=== PATIENT | male | born 1935 | race Asian ===

== ENCOUNTER 2016-12-11 14:31 | Observation (INO) | payer MEDICARE, OTHER ==
[~2016-12-11] VITALS: Ht 157.5 cm; Wt 76.0 kg
[~2016-12-11 14:31] MED LIST: AMIO200T PO; ASPI-535 PO; ATOR80TA18 PO; CARV12.579 PO; CLON-379 PO; COU1 PO; ERGO50007 PO; ESOM40CA PO; FAMO20TA18 PO; FENO134C PO; FERR-55 PO; FOLI-49 PO; LAS20 PO; PARI1CAP7 PO
[2016-12-11] MEDS ORDERED: SOD CHLORIDE 0.9% 1,000 ML IV STA (14:46)
[2016-12-11 15:13] LABS: HEMATOCRIT 35.5 % (42.0-52.0); HEMOGLOBIN 11.9 g/dl (14.0-18.0); MEAN CORPUSCULAR HEMOGLOBIN 23.8 pg (29.0-33.0); MEAN CORPUSCULAR HGB CONC 33.5 g/dl (32.0-37.0); MEAN CORPUSCULAR VOLUME 70.9 fl (82.0-101.0); MEAN PLATELET VOLUME 11.2 fl (7.4-10.4); NEUTROPHILS % 64.6 % (39.0-77.0); PLATELET COUNT 321 10^3/UL (140-415); RED BLOOD COUNT 5.01 10^6/ul (4.70-6.10); RED CELL DISTRIBUTION WIDTH 18.8 % (11.5-14.5); WHITE BLOOD COUNT 7.6 10^3/ul (4.8-10.8)
[2016-12-11 15:14] LABS: ABNORMAL IP MESSAGE 1; BASOPHILS % 0.1 % (0.0-2.0); EOSINOPHILS # 0.1 10^3/ul (0.0-0.5); EOSINOPHILS % 0.8 % (0.0-7.0); LYMPHOCYTES # 1.7 10^3/ul (0.8-2.9); MONOCYTE # 0.8 10^3/ul (0.3-0.9); MONOCYTES % 10.8 % (0.0-11.0); NEUTROPHIL # 4.9 10^3/ul (1.6-7.5); POSITIVE DIFF @See below
[2016-12-11 15:35] LABS: CALCIUM 9.4 mg/dl (8.4-10.2); CREATININE 1.22 mg/dl (0.61-1.24); POTASSIUM 3.6 mmol/L (3.5-5.1)
[2016-12-11 15:47] LABS: TROPONIN-I 0.023 ng/ml (0.00-0.12)
--- NOTE | 2016-12-11 15:53 | RADRPT ---
PROCEDURE: CT Brain without contrast. CLINICAL INDICATION: Patient experiencing Syncope. TECHNIQUE: A multiplanar CT of the brain was performed on a CT scanner utilizing axial imaging fro m the skull base through the vertex without IV contrast. The CTDIvol is 43.38 mGy and the DLP is 72 0.23 mGycm. One or more of the following dose reduction techniques were utilized: Automated exposu re control, adjustment of the mA and/or kV according to patient size, use of iterative reconstructio n technique. COMPARISON: 10/25/2012 FINDINGS: No evidence of intracranial hemorrhage or abnormal extra-axial fluid collection. Extensive patchy an d confluent low attenuation throughout the deep white matter compatible sequelae of chronic microvas cular ischemic injury. Remote lacunar infarct in the left sub insular region. The brain parenchyma is otherwise normal in morphology with preservation of hua white differentiati on. Ventricles and subarachnoid spaces are prominent compatible with mild age related atrophy. The basal cisterns, posterior fossa contents, brainstem, craniocervical junction, orbits, pituitary axis, paranasal sinuses, mastoid air cells, and calvarium are unremarkable. IMPRESSION: 1. No intracranial hemorrhage or acute intracranial abnormality. 2. Moderate chronic microvascular ischemic changes in the deep white matter, remote left sub insula r lacunar infarct and mild age related atrophy. 3. No interval change compared to 10/25/2012 RPTAT:AAJJ Physician Hannah Date Time Electronically viewed and signed by Physician Hannah on 12/11/2016 15:53 KAREN/
[2016-12-11 15:54] LABS: ADD UMIC YES; UR ASCORBIC ACID NEGATIVE (NEGATIVE); UR BILIRUBIN (Dip) NEGATIVE (NEGATIVE); UR BLOOD (Dip) NEGATIVE (NEGATIVE); UR CLARITY CLEAR (CLEAR); UR COLOR YELLOW (YELLOW); UR GLUCOSE (Dip) NEGATIVE (NEGATIVE); UR KETONES (Dip) NEGATIVE (NEGATIVE); UR LEUKOCYTE ESTERASE (Dip) NEGATIVE Leu/ul (NEGATIVE); UR NITRITE (Dip) NEGATIVE (NEGATIVE); UR RBC 0 /HPF (0-5); UR SPECIFIC GRAVITY (Dip) 1.011 (1.003-1.030); UR TOTAL PROTEIN (Dip) 1+ mg/dl (NEGATIVE); UR UROBILINOGEN (Dip) NEGATIVE (NEGATIVE)
[2016-12-11 16:12] LABS: INR 2.2; PROTIME 24.7 Sec (12.2-14.2); PT RATIO 1.9
[2016-12-11 16:13] LABS: PARTIAL THROMBOPLASTIN TIME 33.7 Sec (25.0-35.0)
--- NOTE | 2016-12-11 16:16 | RADRPT ---
PROCEDURE: XR Chest. CLINICAL INDICATION: Chest pain. Syncope TECHNIQUE: Portable AP upright view of the chest was obtained. COMPARISON: 05/10/2013 FINDINGS: The cardiomediastinal silhouette remains mildly enlarged, a left subclavian approach dual chamber ca rdiac pacemaker again demonstrated. The lungs are clear. There is no evidence for pleural effusion , pneumothorax or pulmonary vascular congestion. The osseous structures are intact with no evidence for acute abnormality. Calcification within the aortic arch is again seen RPTAT:HJJR IMPRESSION: 1. Stable cardiac silhouette enlargement and cardiac pacemaker without evidence for acute intrathora cic pathology. 2. Aortic atherosclerosis is present. Physician Citlali Date Time Electronically viewed and signed by Physician Citlali on 12/11/2016 16:16 /
[2016-12-11] MEDS ORDERED: AMLO5TAB4 PO (16:23)
[2016-12-11] MEDS ORDERED: ASPI-664 PO (16:24)
[2016-12-11] MEDS ORDERED: CARV25TA79 PO (16:24)
[2016-12-11] MEDS ORDERED: COLC0.6T6 PO (16:25)
[2016-12-11] MEDS ORDERED: FAMO20TA18 PO (16:25)
[2016-12-11] MEDS ORDERED: FURO40TA4 PO (16:26)
[2016-12-11] MEDS ORDERED: FLUT16SP17 NASAL (16:26)
[2016-12-11] MEDS ORDERED: CHLO118L3 TOP (16:26)
[2016-12-11] MEDS ORDERED: HYDR-3671 PO (16:28)
[2016-12-11] MEDS ORDERED: LOSA50TA6 PO (16:29)
[2016-12-11] MEDS ORDERED: NIT4 SL (16:29)
[2016-12-11] MEDS ORDERED: LEVO25TA50 PO (16:29)
[2016-12-11] MEDS ORDERED: OMEP40CA6 PO (16:30)
[2016-12-11] MEDS ORDERED: PRED20TA PO (16:30)
[2016-12-11] MEDS ORDERED: ERGO500037 PO (16:31)
[2016-12-11] MEDS ORDERED: SOLI5TAB5 PO (16:31)
[2016-12-11] MEDS ORDERED: WARF1TAB47 PO ×2 (16:34)
[2016-12-11] MEDS ORDERED: POLY17PO3 PO (16:35)
[2016-12-11] MEDS ORDERED: CHLO473M4 MM (16:37)
[2016-12-11] MEDS ORDERED: ACETAMINOPHEN 325 MG TAB PO PRN (17:00)
[2016-12-11] MEDS ORDERED: ONDANSETRON 4 MG INJ IV PRN ×2 (17:00→22:00)
[2016-12-11 18:31] VITALS: TEMP 97.7
--- NOTE | 2016-12-11 19:07 | ERA ---
ER Documentation Chief Complaint Date/Time DATE: 12/11/16 TIME: 19:01 Chief Complaint WEAK & FALL ABOUT 1HR, FEELS LIKE WHEN HE HAD A STROKE 3 YRS AGO HPI This 81-year-old male comes emergency room for an episode where he felt very lightheaded had brief episode of chest pain and went down slowly. He is not sure whether he hit his head or not. Initially said that he did. Chest pain is currently resolved. He has no shortness of breath still does feel lightheaded. He is on Coumadin for atrial fibrillation. ROS All systems reviewed and are negative except as per history of present illness. Medications Home Meds Reported Medications Chlorhexidine Gluconate (Peridex) 473 Ml Mouthwash, 473 ML MM PRN, BOTTLE 12/11/16 Polyethylene Glycol* (Polyethylene Glycol*) 17 Gm Powd.pack, 17 GM PO BID, #60 PACKET 12/11/16 Warfarin Sodium* (Coumadin*) 1 Mg Tablet, 1 MG PO DAILY SUN,TU,TH, TAB 12/11/16 Warfarin Sodium* (Coumadin*) 1 Mg Tablet, 1.5 MG PO MON,WED,FRI,SAT, TAB 12/11/16 Ergocalciferol (Vitamin D2) (VITAMIN D2) 50,000 Unit Capsule, 85984 UNIT PO EVERY MONDAY, CAP 12/11/16 Solifenacin* (Vesicare*) 5 Mg Tablet, 5 MG PO DAILY, TAB 12/11/16 Prednisone* (Prednisone*) 20 Mg Tab, 20 MG PO DAILY, TAB 12/11/16 Omeprazole* (Omeprazole*) 40 Mg Capsule.dr, 40 MG PO DAILY, #30 CAP 12/11/16 Nitroglycerin* (Nitrostat*) 0.4 Mg Tab.subl, 0.4 MG SL Q5MIN Y for CHEST PAIN, BOTTLE 12/11/16 Losartan Potassium* (Losartan Potassium*) 50 Mg Tablet, 50 MG PO BID, TAB 12/11/16 Levothyroxine Sodium* (Levoxyl*) 25 Mcg Tablet, 25 MCG PO BEFORE BREAKFAST, #30 TAB 12/11/16 Hydralazine Hcl* (Hydralazine Hcl*) 25 Mg Tab, 25 MG PO TID, #90 TAB 12/11/16 Furosemide* (Furosemide*) 40 Mg Tablet, 40 MG PO BID, TAB 12/11/16 Fluticasone Propionate* (Fluticasone Propionate* Nasal) 50 Mcg/[place] - 16 Gm [place].susp, 1 SPRAY NASAL DAILY, #1 BOTTLE TO EACH NOSTRIL 12/11/16 Chlorhexidine Gluconate* (Chlorhexidine Gluconate*) 118 Ml Liquid, 118 ML TOP, ML 12/11/16 Famotidine* (Famotidine*) 20 Mg Tablet, 20 MG PO BID, #60 TAB 12/11/16 Colchicine* (Colcrys*) 0.6 Mg Tablet, 0.6 MG PO DAILY, TAB 12/11/16 Carvedilol* (Carvedilol*) 25 Mg Tablet, 25 MG PO BID, #60 TAB 12/11/16 Aspirin (Low Dose Aspirin) 81 Mg Tablet.dr, 81 MG PO DAILY, #30 TAB 12/11/16 Amlodipine Besylate* (Norvasc*) 5 Mg Tablet, 5 MG PO DAILY, TAB 12/11/16 Fenofibrate, Micronized (Fenofibrate) 134 Mg Capsule, 134 MG PO DAILY 01/22/12 Atorvastatin (Lipitor) 80 Mg Tablet, 80 MG PO HS 01/22/12 Discontinued Reported Medications Warfarin Sod (Coumadin) 1 Mg Tablet, 0.5 MG PO MON--05/07/13 Paricalcitol* (Zemplar*) 1 Mcg Cap, 1 MCG PO DAILY 05/07/13 Esomeprazole Mag Trihydrate (Nexium) 40 Mg Capsule.dr, 40 MG PO DAILY 01/22/12 Ergocalciferol (Vitamin D) 50,000 Unit Capsule, 74944 UNIT PO 01/22/12 Aspirin Ec (Aspir 81) 81 Mg Tablet.dr, 81 POSYG PO DAILY 01/22/12 Ferrous Sulfate* (Ferrous Sulfate*) 325 Mg Tablet, 325 MG PO BID 01/22/12 Warfarin Sod (Coumadin) 1 Mg Tablet, 1 MG PO DAILY 01/22/12 Amiodarone Hcl* (Amiodarone Hcl*) 200 Mg Tablet, 200 MG PO DAILY 01/22/12 Folic Acid* (Folic Acid*) 1 Mg Tablet, 1 MG PO DAILY 01/22/12 Famotidine* (Famotidine*) 20 Mg Tablet, 20 MG PO DAILY 01/22/12 Carvedilol* (Carvedilol*) 12.5 Mg Tablet, 12.5 MG PO BID 01/22/12 Clonidine Hcl* (Clonidine Hcl*) 0.1 Mg Tab, 0.1 MG PO TID 01/22/12 Furosemide (Lasix) 20 Mg Tab, 20 MG PO BID 01/22/12 Allergies Allergies: Coded Allergies: Penicillins (Verified Allergy, Mild, RASHES, 12/11/16) PMhx/Soc History of Surgery: Yes (pacer 7 yrs ago) Anesthesia Reaction: No Hx Neurological Disorder: No Hx Respiratory Disorders: No Hx Cardiac Disorders: Yes Hx Psychiatric Problems: No Hx Miscellaneous Medical Probl: No Hx Alcohol Use: Yes (drink wine and beer once a week) Hx Substance Use: No Hx Tobacco Use: No Smoking Status: Never smoker Physical Exam Vitals Vital Signs Date Time Temp Pulse Resp B/P Pulse Ox O2 Delivery O2 Flow Rate FiO2 12/11/16 18:31 97.7 72 20 186/88 100 Room Air 12/11/16 16:47 97.7 60 18 182/99 96 Room Air 12/11/16 14:40 97.7 61 20 193/91 96 Physical Exam Const: [] Mild distress Head: Atraumatic Eyes: Normal Conjunctiva ENT: Normal External Ears, Nose and Mouth. Neck: Full range of motion..~ No meningismus. Resp: Clear to auscultation bilaterally Cardio: Regular rate and rhythm, no murmurs Abd: Soft, non tender, non distended. Normal bowel sounds Skin: No petechiae or rashes Back: No midline or flank tenderness Ext: No cyanosis, or edema Neur: Awake and alert and oriented 3, cranial nerves II through XII intact, no focal deficits Psych: Normal Mood and Affect Result Diagram: 12/11/16 1453 12/11/16 1453 Results 24 hrs Laboratory Tests Test 12/11/16 14:53 12/11/16 15:30 12/11/16 15:45 White Blood Count 7.610^3/ul Red Blood Count 5.0110^6/ul Hemoglobin 11.9g/dl Hematocrit 35.5% Mean Corpuscular Volume 70.9fl Mean Corpuscular Hemoglobin 23.8pg Mean Corpuscular Hemoglobin Concent 33.5g/dl Red Cell Distribution Width 18.8% Platelet Count 63152^3/UL Mean Platelet Volume 11.2fl Neutrophils % 64.6% Lymphocytes % 23.0% Monocytes % 10.8% Eosinophils % 0.8% Basophils % 0.1% Nucleated Red Blood Cells % 0.0/100WBC Neutrophils # 4.910^3/ul Lymphocytes # 1.710^3/ul Monocytes # 0.810^3/ul Eosinophils # 0.110^3/ul Basophils # 0.010^3/ul Nucleated Red Blood Cells # 0.010^3/ul Sodium Level 138mmol/L Potassium Level 3.6mmol/L Chloride Level 96mmol/L Carbon Dioxide Level 27mmol/L Anion Gap 19 Blood Urea Nitrogen 28mg/dl Creatinine 1.22mg/dl Glucose Level 122mg/dl Calcium Level 9.4mg/dl Troponin I 0.023ng/ml Urine Color YELLOW Urine Clarity CLEAR Urine pH 6.0 Urine Specific [place] 1.011 Urine Ketones NEGATIVEmg/dL Urine Nitrite NEGATIVEmg/dL Urine Bilirubin NEGATIVEmg/dL Urine Urobilinogen NEGATIVEmg/dL Urine Leukocyte Esterase NEGATIVELeu/ul Urine Microscopic RBC 0/HPF Urine Microscopic WBC 1/HPF Urine Hemoglobin NEGATIVEmg/dL Urine Glucose NEGATIVEmg/dL Urine Total Protein 1+mg/dl Prothrombin Time 24.7Sec Prothrombin Time Ratio 1.9 INR International Normalized Ratio 2.20 Activated Partial Thromboplast Time 33.7Sec Current Medications Medications (Trade) Dose Ordered Sig/[place] Route PRN Reason Start Time Stop Time Status Last Admin Dose Admin Sodium Chloride (NS) 1,000 ml @ 1,000 mls/hr Q1H STAT IV 12/11/16 14:46 12/11/16 15:45 DC 12/11/16 15:04 Ondansetron HCl (Zofran Inj) 4 mg ER BRIDGE PRN IV NAUSEA AND/OR VOMITING 12/11/16 17:00 12/12/16 16:59 Acetaminophen (Tylenol Tab) 650 mg ER BRIDGE PRN PO MILD PAIN/FEVER 12/11/16 17:00 12/12/16 16:59 Procedures/MDM Syncopal episode with possible head injury on Coumadin with a therapeutic INR. Patient also had brief chest pain as extensive risk factors for coronary artery disease and for possible arrhythmia causing syncope. No signs of infection. I am going to admit him to telemetry for further workup. He was given normal saline in the emergency room as well as aspirin. He did start to feel light less lightheaded. When he needs to be monitored with cardiac arrhythmia and the risk of delayed head bleed. EKG interpretation: Normal sinus rhythm rate of 68, wide QRS, prolonged QTC of 516, left axis deviation, no ST or T-wave changes concerning for acute ischemia. quality assurance monitor final interpretation: Alternating sinus rhythm and paced rhythm of 60. No other arrhythmias Head CT interpretation: I see no acute process, I see no hemorrhage, no mass- effect no midline shift no skull fracture Chest x-ray interpretation: Pacemaker in place. I see no other acute process. I see no infiltrates, no foreign edema, and with her eyes, no fractures Departure Diagnosis: Primary Impression: Syncope Additional Impressions: Head injury Coagulopathy Chest pain Generalized weakness Condition: Stable PARISH ROBERTO DO Dec 11, 2016 19:07
[2016-12-11] MEDS ORDERED: ASPIRIN 81 MG TAB PO ONE (19:30)
[2016-12-11] MEDS ORDERED: hydrALAzine 20 MG INJ IV ONE (20:30)
[2016-12-11 21:07] VITALS: PULSE 60
[2016-12-11 22:00] VITALS: Ht 157.5 cm; Wt 76.0 kg
[2016-12-11] MEDS ORDERED: morphine 2 MG INJ IV PRN (22:00)
[2016-12-11] MEDS ORDERED: NITROGLYCERIN (SL) 0.4 MG TAB SL PRN (22:00)
[2016-12-11 22:19] VITALS: BP 180/87; RESP 16
[2016-12-11] MEDS: LOSARTAN 50 MG TAB PO SCH (22:38)
[2016-12-11] MEDS: FUROSEMIDE 40 MG TAB PO SCH (22:39)
[2016-12-11] MEDS: ATORVASTATIN 80 MG TAB PO SCH (22:39)
[2016-12-12] VITALS (13 sets, daily range): BP systolic 103–184; BP diastolic 57–99; PULSE 60–104; RESP 16–18
[2016-12-12] MEDS: PANTOPRAZOLE (EC) 40 MG TAB PO SCH (05:35)
[2016-12-12] MEDS: FUROSEMIDE 40 MG TAB PO SCH ×2 (05:35→17:08)
--- NOTE | 2016-12-12 05:46 | HP ---
Date/Time of Note Date/Time of Note DATE: 12/12/16 TIME: 05:30 Assessment/Plan VTE Prophylaxis VTE Prophylaxis Intervention: other (coumadin) Lines/Catheters [facility] Saline Lock Urinary Cath still in place: No Assessment/Plan Assessment/Plan 1. Lightheadedness/near syncope -Continue to monitor on the telemetry unit -Patient without any neurological deficits suggestive of stroke. Head CT was also negative for acute findings. Plan is to obtain a 2D echo, trend his troponin, and it will order CT angiogram of the head and neck. Note that patient has a pacemaker and as such MRI cannot be done. -Will continue his home medication including his antihypertensives for better blood pressure control. -We will consider a cardiology consult 2. History of CVA -Continue aspirin and statin 3. History of SD -Continue aspirin, statin, ARB and beta-jj -Follow up on the 2D echo results as well as troponins 4. Sick sinus, status-post pacemaker -Continue cardiac meds 5. History of A. fib -He is in sinus rhythm. Also has a pacemaker for sick sinus -Continue Coumadin as well as his cardiac medications. INR is therapeutic at 2.2 6. Microcytic anemia -We will evaluate for GI bleed by sending FOBT. We will also check iron profile and ferritin HPI/ROS Admit Date/Time Admit Date/Time Dec 11, 2016 at 16:40 Hx of Present Illness This is an 81-year-old male with a history of chronic A. fib, SD in 2005, CVA in 2005, sick sinus status post pacemaker placement in 2005 who presented to the emergency department with a chief complaint of lightheadedness. He said earlier today while he was in a standing position he felt lightheaded and and was about to fall down but he is somewhat caught himself and had to sit on the floor. He denied any palpitations, chest pain, focal weakness, headache, blurry vision, shortness of breath or stroke like symptom even though he said he was also similarly lightheaded when he had stroke about 10 years ago. He denied hematemesis, bright red blood per rectum or dark stool. When he presented to the ER, his initial blood pressure was 193/91with of heart rate 61. Laboratory values shows a hemoglobin of 11.9 with MCV of 71, BUN 28 with a creatinine of 1.22. CT of the head shows a chronic mitral vascular ischemic change and remote lacunar infarct otherwise no acute findings. Chest x -ray shows stable enlarged cardiac silhouette otherwise no acute cardiopulmonary findings. . PMH/Family/Social Social History Smoking Status: Never smoker Exam/Review of Systems Vital Signs Vitals Vital Signs Date Time Temp Pulse Resp B/P Pulse Ox O2 Delivery O2 Flow Rate FiO2 12/12/16 04:45 97.9 61 16 160/80 96 12/11/16 20:23 Room Air Intake and Output 12/11/16 12/11/16 12/12/16 15:00 23:00 07:00 Intake Total 1000 ml Output Total 1430 ml Balance -430 ml Exam Exam Sick sinus status post pacemaker, SD, CVA both in 2006 and chronic A. fib Constitutional: alert, oriented, well developed Head: atraumatic, normocephalic Eyes: EOMI, PERRL Neck: non-tender, supple Respiratory: clear to auscultation, normal air movement Cardiovascular: nl pulses, other (Pacemaker in place in the left upper chest), regular rate and rhythm Gastrointestinal: non-tender, soft Extremities: normal pulses Neurological: nl mental status, nl speech, nl strength Labs Result Diagram: 12/11/16 1453 12/11/16 1453 Medications Medications Current Medications Amlodipine Besylate (Norvasc) 5 mg DAILY PO ; Start 12/12/16 at 09:00 Atorvastatin Calcium (Lipitor) 80 mg HS PO Last administered on 12/11/16 22:39 ; Admin Dose 80 MG; Start 12/11/16 at 22:00 Carvedilol (Coreg) 25 mg BID PO ; Start 12/11/16 at 22:00 Chlorhexidine Gluconate (Peridex) 473 ml PRN MM ; Start 12/12/16 at 09:00; Status UNV Famotidine (Pepcid) 20 mg DAILY PO ; Start 12/12/16 at 09:00 Fluticasone Propionate (Flonase 0.05% Nasal) 1 spray DAILY NASAL ; Start at 09:00 Furosemide (Lasix) 40 mg BID@06,18 PO Last administered on 12/11/16 22:39; Admin Dose 40 MG; Start 12/11/16 at 22:00 Hydralazine HCl (Apresoline) 25 mg TID PO Last administered on 12/11/16 22:38 ; Admin Dose 25 MG; Start 12/11/16 at 22:00 Losartan Potassium (Cozaar) 50 mg BID PO Last administered on 12/11/16 22:38; Admin Dose 50 MG; Start 12/11/16 at 22:00 Nitroglycerin (Nitroglycerin (Sl Tab) 0.4 Mg) 0.4 tab [id number] PRN SL CHEST PAIN; Start 12/11/16 at 22:00 Polyethylene Glycol (Miralax) 17 gm BID PO ; Start 12/12/16 at 09:00 Prednisone (Prednisone) 20 mg DAILY PO ; Start 12/12/16 at 09:00 Solifenacin (Vesicare) 5 mg DAILY PO ; Start 12/12/16 at 09:00 Morphine Sulfate (morphine) 2 mg Q4H PRN IV pain; Start 12/11/16 at 22:00 Ondansetron HCl (Zofran Inj) 4 mg Q6H PRN IV NAUSEA AND/OR VOMITING; Start at 22:00 Colchicine (Colchicine) 0.6 mg DAILY PO ; Start 12/12/16 at 09:00 Fenofibrate (Tricor) 145 mg DAILY PO ; Start 12/12/16 at 09:00 Pantoprazole (Protonix Tab) 40 mg DAILY@06 PO ; Start 12/12/16 at 06:00 CORINA WATSON MD Dec 12, 2016 05:42
[2016-12-12] MEDS: LEVOTHYROXINE 25 MCG TAB PO SCH (07:47)
[2016-12-12] MEDS ORDERED: [UNRECOGNIZED DRUG - REMARK] XX SCH (08:00)
[2016-12-12 08:24] LABS: ABNORMAL IP MESSAGE 1; BASOPHILS % 0.3 % (0.0-2.0); EOSINOPHILS # 0.2 10^3/ul (0.0-0.5); EOSINOPHILS % 2.7 % (0.0-7.0); HEMATOCRIT 41.9 % (42.0-52.0); HEMOGLOBIN 14.1 g/dl (14.0-18.0); LYMPHOCYTES # 1.6 10^3/ul (0.8-2.9); LYMPHOCYTES % 27.2 % (15.0-51.0); MEAN CORPUSCULAR HEMOGLOBIN 23.5 pg (29.0-33.0); MEAN CORPUSCULAR HGB CONC 33.7 g/dl (32.0-37.0); MEAN CORPUSCULAR VOLUME 69.8 fl (82.0-101.0); MEAN PLATELET VOLUME 10.5 fl (7.4-10.4); MONOCYTE # 0.8 10^3/ul (0.3-0.9); MONOCYTES % 13.7 % (0.0-11.0); NEUTROPHIL # 3.3 10^3/ul (1.6-7.5); NEUTROPHILS % 55.3 % (39.0-77.0); PLATELET COUNT 418 10^3/UL (140-415); POSITIVE DIFF @See below; RED CELL DISTRIBUTION WIDTH 19.2 % (11.5-14.5); WHITE BLOOD COUNT 5.9 10^3/ul (4.8-10.8)
[2016-12-12] MEDS: FLUTICASONE 0.05% 16 GM NAS SPRAY NASAL SCH (08:42)
[2016-12-12] MEDS: POLYETHYLENE GLYCOL 17 GM PACKET PO SCH (08:42)
[2016-12-12] MEDS: FAMOTIDINE 20 MG TAB PO SCH (08:43)
[2016-12-12] MEDS: FENOFIBRATE 145 MG TAB PO SCH (08:43)
[2016-12-12] MEDS: predniSONE 20 MG TAB PO SCH (08:43)
[2016-12-12] MEDS: AMLODIPINE 5 MG TAB PO SCH (08:43)
[2016-12-12] MEDS: SOLIFENACIN 5 MG TAB PO SCH (08:43)
[2016-12-12] MEDS: LOSARTAN 50 MG TAB PO SCH (08:44)
[2016-12-12] MEDS: COLCHICINE 0.6 MG TAB PO SCH (08:46)
[2016-12-12 08:55] LABS: ALBUMIN 4.1 g/dl (3.3-4.9); ALBUMIN/GLOBULIN RATIO 1.1; BILIRUBIN,INDIRECT 0.5 mg/dl (0-1.1); BILIRUBIN,TOTAL 0.5 mg/dl (0.2-1.3); CALCIUM 10.2 mg/dl (8.4-10.2); CHOL/HDL RATIO 3.6 RATIO; CREATININE 1.28 mg/dl (0.61-1.24); POTASSIUM 4.2 mmol/L (3.5-5.1); TOTAL PROTEIN 7.8 g/dl (6.1-8.1)
[2016-12-12] MEDS ORDERED: CHLORHEXIDINE GLUCONATE 15 ML UD CUP MM SCH (09:00)
[2016-12-12] MEDS ORDERED: NON-FORMULARY/PATIENT OWN MED (Omeprazole* 40 MG) PO SCH (09:00)
[2016-12-12] MEDS ORDERED: COLCHICINE 0.6 MG TAB PO SCH (09:00)
[2016-12-12] MEDS ORDERED: NON-FORMULARY/PATIENT OWN MED (Fenofibrate, Micronized (Fenofibrate) 134 MG) PO SCH (09:00)
[2016-12-12 09:21] LABS: THYROID STIMULATING HORMONE 4.24 MIU/L (0.465-4.680)
[2016-12-12 09:37] LABS: IRON 90 ug/dl (35-150)
[2016-12-12 09:47] LABS: TOTAL IRON BINDING CAPACITY 320 ug/dl (241-421)
--- NOTE | 2016-12-12 14:56 | PN ---
Date/Time of Note Date/Time of Note DATE: 12/12/16 TIME: 14:52 Assessment/Plan VTE Prophylaxis VTE Prophylaxis Intervention: other Lines/Catheters IV [facility] Saline Lock Urinary Cath still in place: No Assessment/Plan Chief Complaint/Hosp Course Presyncope: - Clearly orthostatic by history in patient with numerous antihypertensives causing orthostasis as side effect. Seems to have been caused by recent addition of amlodipine. I discussed w the patient that he can discontinue amlodipnien if he feels dizziness is not tolerable. 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 States he has had orthostatic symtpoms since starting this medication. Has repeat appointment Monday Reports hypertension uncontrolled on home monitor over past two weeks Feels well otherwise, no chest symptioms Exam/Review of Systems Vital Signs Vitals Vital Signs Date Time Temp Pulse Resp B/P Pulse Ox O2 Delivery O2 Flow Rate FiO2 12/12/16 12:25 104 12/12/16 11:40 98.0 17 135/73 94 12/11/16 20:23 Room Air Intake and Output 12/11/16 12/11/16 12/12/16 15:00 23:00 07:00 Intake Total 1000 ml 400 ml Output Total 1430 ml Balance -430 ml 400 ml Exam Well appeairng, Aox3 Flat neck veins Regular RR Clear lungs No edema Results Result Diagram: 12/12/16 0718 12/12/16 0721 Results 24 hrs Laboratory Tests Test 12/11/16 14:53 12/11/16 15:30 12/11/16 15:45 12/12/16 00:39 White Blood Count 7.6 Red Blood Count 5.01 Hemoglobin 11.9 L Hematocrit 35.5 L Mean Corpuscular Volume 70.9 L Mean Corpuscular Hemoglobin 23.8 L Mean Corpuscular Hemoglobin Concent 33.5 Red Cell Distribution Width 18.8 H Platelet Count 321 Mean Platelet Volume 11.2 H Neutrophils % 64.6 Lymphocytes % 23.0 Monocytes % 10.8 Eosinophils % 0.8 Basophils % 0.1 Nucleated Red Blood Cells % 0.0 Neutrophils # 4.9 Lymphocytes # 1.7 Monocytes # 0.8 Eosinophils # 0.1 Basophils # 0.0 Nucleated Red Blood Cells # 0.0 Sodium Level 138 Potassium Level 3.6 Chloride Level 96 L Carbon Dioxide Level 27 Anion Gap 19 H Blood Urea Nitrogen 28 H Creatinine 1.22 Glucose Level 122 Calcium Level 9.4 Troponin I 0.023 0.042 Urine Color YELLOW Urine Clarity CLEAR Urine pH 6.0 Urine Specific [place] 1.011 Urine Ketones NEGATIVE Urine Nitrite NEGATIVE Urine Bilirubin NEGATIVE Urine Urobilinogen NEGATIVE Urine Leukocyte Esterase NEGATIVE Urine Microscopic RBC 0 Urine Microscopic WBC 1 Urine Hemoglobin NEGATIVE Urine Glucose NEGATIVE Urine Total Protein 1+ H Prothrombin Time 24.7 H Prothrombin Time Ratio 1.9 INR International Normalized Ratio 2.20 Activated Partial Thromboplast Time 33.7 Test 12/12/16 07:18 12/12/16 07:21 White Blood Count 5.9 # Red Blood Count 6.00 Hemoglobin 14.1 Hematocrit 41.9 L Mean Corpuscular Volume 69.8 L Mean Corpuscular Hemoglobin 23.5 L Mean Corpuscular Hemoglobin Concent 33.7 Red Cell Distribution Width 19.2 H Platelet Count 418 #H Mean Platelet Volume 10.5 H Neutrophils % 55.3 Lymphocytes % 27.2 Monocytes % 13.7 H Eosinophils % 2.7 Basophils % 0.3 Nucleated Red Blood Cells % 0.0 Neutrophils # 3.3 Lymphocytes # 1.6 Monocytes # 0.8 Eosinophils # 0.2 Basophils # 0.0 Nucleated Red Blood Cells # 0.0 Sodium Level 138 Potassium Level 4.2 Chloride Level 93 L Carbon Dioxide Level 32 H Anion Gap 17 H Blood Urea Nitrogen 25 H Creatinine 1.28 H Glucose Level 93 Hemoglobin A1c 6.1 H Calcium Level 10.2 Iron Level 90 Total Iron Binding Capacity 320 Percent Iron Saturation 28 Ferritin 486.0 H Total Bilirubin 0.5 Direct Bilirubin 0.00 Indirect Bilirubin 0.5 Aspartate Amino Transf (AST/SGOT) 71 H Alanine Aminotransferase (ALT/SGPT) 100 H Alkaline Phosphatase 67 Troponin I 0.047 Total Protein 7.8 Albumin 4.1 Globulin 3.70 H Albumin/Globulin Ratio 1.10 Triglycerides Level 111 Cholesterol Level 140 LDL Cholesterol, Calculated 80 HDL Cholesterol 38 Cholesterol/HDL Ratio 3.6 Thyroid Stimulating Hormone (TSH) 4.240 Medications Medications Current Medications Amlodipine Besylate (Norvasc) 5 mg DAILY PO Last administered on 12/12/16 08: 43; Admin Dose 5 MG; Start 12/12/16 at 09:00 Atorvastatin Calcium (Lipitor) 80 mg HS PO Last administered on 12/11/16 22:39 ; Admin Dose 80 MG; Start 12/11/16 at 22:00 Carvedilol (Coreg) 25 mg BID PO Last administered on 12/12/16 08:43; Admin Dose 25 MG; Start 12/11/16 at 22:00 Famotidine (Pepcid) 20 mg DAILY PO Last administered on 12/12/16 08:43; Admin Dose 20 MG; Start 12/12/16 at 09:00 Fluticasone Propionate (Flonase 0.05% Nasal) 1 spray DAILY NASAL Last administered on 12/12/16 08:42; Admin Dose 1 SPRAY; Start 12/12/16 at 09:00 Furosemide (Lasix) 40 mg BID@,18 PO Last administered on 12/12/16 05:35; Admin Dose 40 MG; Start 12/11/16 at 22:00 Hydralazine HCl (Apresoline) 25 mg TID PO Last administered on 12/12/16 12:24 ; Admin Dose 25 MG; Start 12/11/16 at 22:00 Losartan Potassium (Cozaar) 50 mg BID PO Last administered on 12/12/16 08:44; Admin Dose 50 MG; Start 12/11/16 at 22:00 Nitroglycerin (Nitroglycerin (Sl Tab) 0.4 Mg) 0.4 tab [id number] PRN SL CHEST PAIN; Start 12/11/16 at 22:00 Polyethylene Glycol (Miralax) 17 gm BID PO Last administered on 12/12/16 08:42 ; Admin Dose 17 GM; Start 12/12/16 at 09:00 Prednisone (Prednisone) 20 mg DAILY PO Last administered on 12/12/16 08:43; Admin Dose 20 MG; Start 12/12/16 at 09:00 Solifenacin (Vesicare) 5 mg DAILY PO Last administered on 12/12/16 08:43; Admin Dose 5 MG; Start 12/12/16 at 09:00 Morphine Sulfate (morphine) 2 mg Q4H PRN IV pain; Start 12/11/16 at 22:00 Ondansetron HCl (Zofran Inj) 4 mg Q6H PRN IV NAUSEA AND/OR VOMITING; Start at 22:00 Colchicine (Colchicine) 0.6 mg DAILY PO Last administered on 12/12/16 08:46; Admin Dose 0.6 MG; Start 12/12/16 at 09:00 Fenofibrate (Tricor) 145 mg DAILY PO Last administered on 12/12/16 08:43; Admin Dose 145 MG; Start 12/12/16 at 09:00 Pantoprazole (Protonix Tab) 40 mg DAILY@06 PO Last administered on 12/12/16 05 :35; Admin Dose 40 MG; Start 12/12/16 at 06:00 CHUY CLEMENTE MD Dec 12, 2016 14:56
--- NOTE | 2016-12-12 15:18 | RADRPT ---
Echocardiogram Report Patient Name: OMAR BAUTISTA Gender: Male Date: 1935 Study Date: 12-Dec-2016 Carpet Winder: Dariusz Feliciano [facility] Location: 5556 Ref. Physician: CORINA WATSON Quality: Good Procedures: Transthoracic echocardiogram with complete 2D, M-Mode, and doppler examination. Indications: Near Syncope. 2D/M Mode Doppler Measurement Value Normal Ranges Measurement Value Normal Ranges LVIDd 2D 4.0 3.5 - 5.6 cm AV Peak Matthew 1.0 m/sec LVIDs 2D 2.2 2.1 - 4.1 cm AV Peak PG 3.7 mmHg LVPWd 2D 1.6 0.6 - 1.1 cm AI Peak PG 123.5 mmHg IVSd 2D 1.8 0.6 - 1.1 cm AI Peak Matthew 5.6 m/sec AoR Diam 2D 3.1 2.0 - 3.7 cm AI PHT 1045.7 msec EDV 2D 70.1 cm3 LVOT Peak Matthew 0.8 m/sec ESV 2D 10.8 cm3 LVOT Peak PG 2.7 mmHg LA Dimen 2D 4.2 2.3 - 4.0 cm TR Peak Matthew 2.6 m/sec TR Peak PG 26.4 mmHg RVSP 36.0 mmHg Findings Left Ventricle: Normal left ventricular cavity size. Severe concentric left ventricular hypertrophy. Mild left ventricular systolic dysfunction. Ejection fraction is visually estimated at 45 %. Tissue Doppler/Mitral Doppler indices are consistent with restrictive physiology with markedly elevated left atrial pressure (Stage IIIIV diastolic dysfunction). Multiple segmental wall motion abnormalities. Right Ventricle: Normal right ventricular size. Normal right ventricular systolic function. Pacemaker right heart. Left Atrium: There is mild enlargement of left atrium. Right Atrium: The right atrium is normal in size. Mitral Valve: Normal appearance and function of the mitral valve with trace physiologic regurgitation. Aortic Valve: No hemodynamically significant aortic stenosis by doppler. Aortic cusps appear mildly calcified. Mild aortic valve regurgitation. Tricuspid Valve: Normal appearance of the tricuspid valve. Estimated peak PA systolic pressure 36 mmHg. There is mild tricuspid regurgitation. Pulmonic Valve: Pulmonic valve not well visualized. There is trace pulmonic regurgitation. Pericardium: Normal pericardium with no significant pericardial effusion. Aorta: Normal aortic root. IVC: Normal size and normal respiratory collapse consistent with normal right atrial pressure. Conclusions 1.Normal left ventricular cavity size. Severe concentric left ventricular hypertrophy. Mild left ventricular systolic dysfunction. Ejection fraction is visually estimated at 45 %. Tissue Doppler/Mitral Doppler indices are consistent with restrictive physiology with markedly elevated left atrial pressure (Stage III-IV diastolic dysfunction). Multiple segmental wall motion abnormalities. 2.There is mild enlargement of left atrium. 3.Normal appearance and function of the mitral valve with trace physiologic regurgitation. 4.No hemodynamically significant aortic stenosis by doppler. Aortic cusps appear mildly calcified. Mild aortic valve regurgitation. 5.Normal appearance of the tricuspid valve. Estimated peak PA systolic pressure 36 mmHg. There is mild tricuspid regurgitation. 6.Normal size and normal respiratory collapse consistent with normal right atrial pressure. Electronically Signed By: Ayo Sanchez 12-Dec-2016 15:17:06 -0700 Patient Name: OMAR BAUTISTA Study Date: 12-Dec-2016 [id number]
[2016-12-13] VITALS (7 sets, daily range): BP systolic 104–141; BP diastolic 54–82; PULSE 60–62; RESP 16–18
[2016-12-13] MEDS: ATORVASTATIN 80 MG TAB PO SCH (01:49)
[2016-12-13] MEDS: LOSARTAN 50 MG TAB PO SCH ×2 (01:51→09:44)
[2016-12-13] MEDS: POLYETHYLENE GLYCOL 17 GM PACKET PO SCH ×2 (01:51→09:46)
[2016-12-13] MEDS: PANTOPRAZOLE (EC) 40 MG TAB PO SCH (05:32)
[2016-12-13] MEDS: FUROSEMIDE 40 MG TAB PO SCH (05:32)
[2016-12-13] MEDS: LEVOTHYROXINE 25 MCG TAB PO SCH (05:34)
[2016-12-13] MEDS: FLUTICASONE 0.05% 16 GM NAS SPRAY NASAL SCH (09:42)
[2016-12-13] MEDS: COLCHICINE 0.6 MG TAB PO SCH (09:43)
[2016-12-13] MEDS: FENOFIBRATE 145 MG TAB PO SCH (09:45)
[2016-12-13] MEDS: SOLIFENACIN 5 MG TAB PO SCH (09:45)
[2016-12-13] MEDS: FAMOTIDINE 20 MG TAB PO SCH (09:45)
[2016-12-13] MEDS: predniSONE 20 MG TAB PO SCH (09:45)
[2016-12-13] MEDS: AMLODIPINE 5 MG TAB PO SCH (09:46)
--- NOTE | 2016-12-13 13:33 | PDOCDIS ---
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 Make them aware of your problem with dizziness with standing and see if you should change your blood pressure regimen CHUY CLEMENTE MD Dec 13, 2016 13:33
--- NOTE | 2016-12-13 13:35 | DS ---
Date/Time of Note Date/Time of Note DATE: 12/13/16 TIME: 13:34 Discharge Summary Admission/Discharge Info Admit Date/Time Dec 11, 2016 at 16:40 Discharge Date/Time Patient Condition: Good Consults None Procedures None Hx of Present Illness This is an 81-year-old male with a history of chronic A. fib, DE in 2005, CVA in 2005, sick sinus status post pacemaker placement in 2005 who presented to the emergency department with a chief complaint of lightheadedness. He said earlier today while he was in a standing position he felt lightheaded and and was about to fall down but he is somewhat caught himself and had to sit on the floor. He denied any palpitations, chest pain, focal weakness, headache, blurry vision, shortness of breath or stroke like symptom even though he said he was also similarly lightheaded when he had stroke about 10 years ago. He denied hematemesis, bright red blood per rectum or dark stool. When he presented to the ER, his initial blood pressure was 193/91with of heart rate 61. Laboratory values shows a hemoglobin of 11.9 with MCV of 71, BUN 28 with a creatinine of 1.22. CT of the head shows a chronic mitral vascular ischemic change and remote lacunar infarct otherwise no acute findings. Chest x -ray shows stable enlarged cardiac silhouette otherwise no acute cardiopulmonary findings. . Hospital Course Presyncope: - Clearly orthostatic by history in patient with numerous antihypertensives causing orthostasis as side effect. Seems to have been caused by recent addition of amlodipine. I discussed w the patient that he can discontinue amlodipnien if he feels dizziness is not tolerable. Otherwise I educated him on behavioral techniques to avoid syncope (stand slowly, cross legs, etc) - Patient had no evidence of arrythmia - Instructed of follow up with front elevator operator and PCP regarding his orthostatic symptoms Home Meds Reported Medications Chlorhexidine Gluconate (Peridex) 473 Ml Mouthwash, 473 ML MM PRN, BOTTLE 12/11/16 Polyethylene Glycol* (Polyethylene Glycol*) 17 Gm Powd.pack, 17 GM PO BID, #60 PACKET 12/11/16 Warfarin Sodium* (Coumadin*) 1 Mg Tablet, 1 MG PO DAILY SUN,TU,TH, TAB 12/11/16 Warfarin Sodium* (Coumadin*) 1 Mg Tablet, 1.5 MG PO MON,WED,FRI,SAT, TAB 12/11/16 Ergocalciferol (Vitamin D2) (VITAMIN D2) 50,000 Unit Capsule, 85542 UNIT PO EVERY MONDAY, CAP 12/11/16 Solifenacin* (Vesicare*) 5 Mg Tablet, 5 MG PO DAILY, TAB 12/11/16 Prednisone* (Prednisone*) 20 Mg Tab, 20 MG PO DAILY, TAB 12/11/16 Omeprazole* (Omeprazole*) 40 Mg Capsule.dr, 40 MG PO DAILY, #30 CAP 12/11/16 Nitroglycerin* (Nitrostat*) 0.4 Mg Tab.subl, 0.4 MG SL Q5MIN Y for CHEST PAIN, BOTTLE 12/11/16 Losartan Potassium* (Losartan Potassium*) 50 Mg Tablet, 50 MG PO BID, TAB 12/11/16 Levothyroxine Sodium* (Levoxyl*) 25 Mcg Tablet, 25 MCG PO BEFORE BREAKFAST, #30 TAB 12/11/16 Hydralazine Hcl* (Hydralazine Hcl*) 25 Mg Tab, 25 MG PO TID, #90 TAB 12/11/16 Furosemide* (Furosemide*) 40 Mg Tablet, 40 MG PO BID, TAB 12/11/16 Fluticasone Propionate* (Fluticasone Propionate* Nasal) 50 Mcg/[place] - 16 Gm [place].susp, 1 SPRAY NASAL DAILY, #1 BOTTLE TO EACH NOSTRIL 12/11/16 Chlorhexidine Gluconate* (Chlorhexidine Gluconate*) 118 Ml Liquid, 118 ML TOP, ML 12/11/16 Famotidine* (Famotidine*) 20 Mg Tablet, 20 MG PO BID, #60 TAB 12/11/16 Colchicine* (Colcrys*) 0.6 Mg Tablet, 0.6 MG PO DAILY, TAB 12/11/16 Carvedilol* (Carvedilol*) 25 Mg Tablet, 25 MG PO BID, #60 TAB 12/11/16 Aspirin (Low Dose Aspirin) 81 Mg Tablet.dr, 81 MG PO DAILY, #30 TAB 12/11/16 Amlodipine Besylate* (Norvasc*) 5 Mg Tablet, 5 MG PO DAILY, TAB 12/11/16 Fenofibrate, Micronized (Fenofibrate) 134 Mg Capsule, 134 MG PO DAILY 01/22/12 Atorvastatin (Lipitor) 80 Mg Tablet, 80 MG PO HS 01/22/12 Discontinued Reported Medications Warfarin Sod (Coumadin) 1 Mg Tablet, 0.5 MG PO MON-05/07/13 Paricalcitol* (Zemplar*) 1 Mcg Cap, 1 MCG PO DAILY 05/07/13 Esomeprazole Mag Trihydrate (Nexium) 40 Mg Capsule.dr, 40 MG PO DAILY 01/22/12 Ergocalciferol (Vitamin D) 50,000 Unit Capsule, 53067 UNIT PO 01/22/12 Aspirin Ec (Aspir 81) 81 Mg Tablet.dr, 81 POSYG PO DAILY 01/22/12 Ferrous Sulfate* (Ferrous Sulfate*) 325 Mg Tablet, 325 MG PO BID 01/22/12 Warfarin Sod (Coumadin) 1 Mg Tablet, 1 MG PO DAILY 01/22/12 Amiodarone Hcl* (Amiodarone Hcl*) 200 Mg Tablet, 200 MG PO DAILY 01/22/12 Folic Acid* (Folic Acid*) 1 Mg Tablet, 1 MG PO DAILY 01/22/12 Famotidine* (Famotidine*) 20 Mg Tablet, 20 MG PO DAILY 01/22/12 Carvedilol* (Carvedilol*) 12.5 Mg Tablet, 12.5 MG PO BID 01/22/12 Clonidine Hcl* (Clonidine Hcl*) 0.1 Mg Tab, 0.1 MG PO TID 01/22/12 Furosemide (Lasix) 20 Mg Tab, 20 MG PO BID 01/22/12 Primary Care Provider MD CHYNA Smith BENJAMIN K MD Dec 13, 2016 13:35
== END 2016-12-13 14:10 | disposition home or self-care (01) ==
LOC: E/R 14:31 → MS4 16:40
PROVIDERS: ADMIT Internal Medicine; ATTEND Internal Medicine
DX: R55 Syncope and collapse (principal); I48.91 Unspecified atrial fibrillation; I25.2 Old myocardial infarction; Z86.73 Personal history of transient ischemic attack (TIA), and cerebral infarction without residual deficits; Z79.01 Long term (current) use of anticoagulants; Z79.82 Long term (current) use of aspirin; Z88.0 Allergy status to penicillin; Z95.0 Presence of cardiac pacemaker; D50.9 Iron deficiency anemia, unspecified
CPT/HCPCS: 70450; 71010; 80048; 80053; 80061; 81001; 82270; 82728; 83036; 83540; 84443; 84484; 85025; 85610; 85730; 93005; 93306; 96361; 96374; 99285; G0378; J0360; J7030; J7512

== ENCOUNTER → 2017-02-17 | Outpatient (CLI) | payer MEDICARE, OTHER ==
[~2017-02-17] MED LIST changes: -AMIO200T PO; +AMLO5TAB4 PO; -ASPI-535 PO; +ASPI-664 PO; -CARV12.579 PO; +CARV25TA79 PO; +CHLO118L3 TOP; +CHLO473M4 MM; -CLON-379 PO; +COLC0.6T6 PO; -COU1 PO; +ERGO500037 PO; -ERGO50007 PO; -ESOM40CA PO; -FERR-55 PO; +FLUT16SP17 NASAL; -FOLI-49 PO; +FURO40TA4 PO; +HYDR-3671 PO; -LAS20 PO; +LEVO25TA50 PO; +LOSA50TA6 PO; +NIT4 SL; +OMEP40CA6 PO; -PARI1CAP7 PO; +POLY17PO3 PO; +PRED20TA PO; +SOLI5TAB5 PO; +WARF1TAB47 PO
--- NOTE | 2017-02-17 13:27 | RADRPT ---
PROCEDURE: Chest radiograph CLINICAL INDICATION: Cough. COMPARISON: Radiograph 05/10/2013. TECHNIQUE: Single frontal chest radiograph. FINDINGS: Pacemaker in the left chest with leads terminating in the right atrium and right ventricle The lungs are clear. No pleural effusion or focal parenchymal opacity. The heart is not enlarged. Aortic atherosclerosis. No suspicious bone lesion. IMPRESSION: No acute cardiopulmonary abnormality. RPTAT: PP Physician Tone Date Time Electronically viewed and signed by Jorge Kincaid Physician on 02/17/2017 13:27 LG/
== END | disposition home or self-care (01) ==
LOC: RAD 09:22
PROVIDERS: ATTEND Internal Medicine
DX: R05 Cough (principal)
CPT/HCPCS: 71020

== ENCOUNTER → 2017-04-11 | Outpatient (CLI) | payer MEDICARE, OTHER ==
[~2017-04-11] MED LIST changes: +TRIA15CR55 TOP
--- NOTE | 2017-04-11 16:46 | RADRPT ---
PROCEDURE: XR Chest. CLINICAL INDICATION: Cough. TECHNIQUE: Two views. Frontal and lateral. COMPARISON: 02/17/2017. FINDINGS: The lungs are clear. There is a permanent pacemaker with leads in the right atrium and right ventricle. The heart size is normal. There is calcification in the aorta consistent with atherosclerosis. There is no pleural effusion. There is no pneumothorax. IMPRESSION: 1. Permanent pacemaker. 2. Atherosclerosis. 3. Otherwise normal chest x-ray. 4. No change from 02/17/2017. RPTAT: QQ .Jacobo Spencer MD, MD Date Time Electronically viewed and signed by .Jacobo Spencer MD, MD on 04/11/2017 16:45 .R/
== END | disposition home or self-care (01) ==
LOC: RAD 15:40
PROVIDERS: ATTEND Internal Medicine
DX: I70.90 Unspecified atherosclerosis (principal); R05 Cough; Z95.0 Presence of cardiac pacemaker
CPT/HCPCS: 71020

== ENCOUNTER 2017-04-15 11:11 | Emergency (ER) | payer MEDICARE, OTHER ==
[~2017-04-15] VITALS: Ht 157.5 cm; Wt 77.0 kg
[~2017-04-15 11:11] MED LIST changes: -TRIA15CR55 TOP
[2017-04-15 11:13] VITALS: Ht 157.5 cm; Wt 77.0 kg
--- NOTE | 2017-04-15 12:16 | ERD ---
ER Documentation Chief Complaint Chief Complaint "Bit by white spider" x 4 days HPI 81-year-old male who presents emergency department for spider bite to his right medial ankle that happened 4 days ago. His right foot/ankle pain with swelling got worse in the past 24 hours. He is unable to bear weight on this affected site. Complaints of dizziness that is on and off about 3 days. Denies difficulty breathing when lying flat, direct trauma, injury, falls. ROS All systems reviewed and are negative except as per history of present illness. Medications Home Meds Reported Medications Chlorhexidine Gluconate (Peridex) 473 Ml Mouthwash, 473 ML MM PRN, BOTTLE 12/11/16 Polyethylene Glycol* (Polyethylene Glycol*) 17 Gm Powd.pack, 17 GM PO BID, #60 PACKET 12/11/16 Warfarin Sodium* (Coumadin*) 1 Mg Tablet, 1 MG PO DAILY SUN,TU,TH, TAB 12/11/16 Warfarin Sodium* (Coumadin*) 1 Mg Tablet, 1.5 MG PO MON,MON,MON,SAT, TAB 12/11/16 Ergocalciferol (Vitamin D2) (VITAMIN D2) 50,000 Unit Capsule, 98121 UNIT PO EVERY MONDAY, CAP 12/11/16 Solifenacin* (Vesicare*) 5 Mg Tablet, 5 MG PO DAILY, TAB 12/11/16 Prednisone* (Prednisone*) 20 Mg Tab, 20 MG PO DAILY, TAB 12/11/16 Omeprazole* (Omeprazole*) 40 Mg Capsule.dr, 40 MG PO DAILY, #30 CAP 12/11/16 Nitroglycerin* (Nitrostat*) 0.4 Mg Tab.subl, 0.4 MG SL Q5MIN Y for CHEST PAIN, BOTTLE 12/11/16 Losartan Potassium* (Losartan Potassium*) 50 Mg Tablet, 50 MG PO BID, TAB 12/11/16 Levothyroxine Sodium* (Levoxyl*) 25 Mcg Tablet, 25 MCG PO BEFORE BREAKFAST, #30 TAB 12/11/16 Hydralazine Hcl* (Hydralazine Hcl*) 25 Mg Tab, 25 MG PO TID, #90 TAB 12/11/16 Furosemide* (Furosemide*) 40 Mg Tablet, 40 MG PO BID, TAB 12/11/16 Fluticasone Propionate* (Fluticasone Propionate* Nasal) 50 Mcg/[place] - 16 Gm [place].susp, 1 SPRAY NASAL DAILY, #1 BOTTLE TO EACH NOSTRIL 12/11/16 Chlorhexidine Gluconate* (Chlorhexidine Gluconate*) 118 Ml Liquid, 118 ML TOP, ML 12/11/16 Famotidine* (Famotidine*) 20 Mg Tablet, 20 MG PO BID, #60 TAB 12/11/16 Colchicine* (Colcrys*) 0.6 Mg Tablet, 0.6 MG PO DAILY, TAB 12/11/16 Carvedilol* (Carvedilol*) 25 Mg Tablet, 25 MG PO BID, #60 TAB 12/11/16 Aspirin (Low Dose Aspirin) 81 Mg Tablet.dr, 81 MG PO DAILY, #30 TAB 12/11/16 Amlodipine Besylate* (Norvasc*) 5 Mg Tablet, 5 MG PO DAILY, TAB 12/11/16 Fenofibrate, Micronized (Fenofibrate) 134 Mg Capsule, 134 MG PO DAILY 01/22/12 Atorvastatin (Lipitor) 80 Mg Tablet, 80 MG PO HS 01/22/12 Allergies Allergies: Coded Allergies: Penicillins (Verified Allergy, Mild, RASHES, 04/15/17) PMhx/Soc History of Surgery: Yes Anesthesia Reaction: No Hx Neurological Disorder: No Hx Respiratory Disorders: No Hx Cardiac Disorders: Yes (chronic AFIB, sick sinus rhythm) Hx Psychiatric Problems: No Hx Miscellaneous Medical Probl: No Hx Alcohol Use: No Hx Substance Use: No Hx Tobacco Use: No Smoking Status: Never smoker Physical Exam Vitals Vital Signs Date Time Temp Pulse Resp B/P Pulse Ox O2 Delivery O2 Flow Rate FiO2 04/15/17 11:13 99.0 65 18 189/80 98 Physical Exam Const: [] Head: Atraumatic Eyes: Normal Conjunctiva ENT: Normal External Ears, Nose and Mouth. Neck: Full range of motion..~ No meningismus. Resp: Clear to auscultation bilaterally Cardio: Regular rate and rhythm, no murmurs Abd: Soft, non tender, non distended. Normal bowel sounds Skin: No petechiae or rashes Back: No midline or flank tenderness Ext: No cyanosis. Left lower extremities unremarkable. Right ankle has swelling and warmth to touch with no discoloration medially and laterally that extends down to the foot. Right pedal pulse is good. Right great toe is swelling. Difficulty walking due to right lower extremity pain. No calf tenderness. Neur: Awake and alert Psych: Normal Mood and Affect Result Diagram: 04/15/17 1216 Results 24 hrs Laboratory Tests Test 04/15/17 12:16 04/15/17 12:59 White Blood Count 9.910^3/ul Red Blood Count 5.7610^6/ul Hemoglobin 13.7g/dl Hematocrit 40.9% Mean Corpuscular Volume 71.0fl Mean Corpuscular Hemoglobin 23.8pg Mean Corpuscular Hemoglobin Concent 33.5g/dl Red Cell Distribution Width 18.5% Platelet Count 33788^3/UL Mean Platelet Volume 9.9fl Neutrophils % 68.8% Lymphocytes % 18.4% Monocytes % 11.8% Eosinophils % 0.3% Basophils % 0.3% Nucleated Red Blood Cells % 0.0/100WBC Neutrophils # 6.810^3/ul Lymphocytes # 1.810^3/ul Monocytes # 1.210^3/ul Eosinophils # 0.010^3/ul Basophils # 0.010^3/ul Nucleated Red Blood Cells # 0.010^3/ul Prothrombin Time 17.0Sec Prothrombin Time Ratio 1.3 INR International Normalized Ratio 1.38 Activated Partial Thromboplast Time 39.0Sec Sodium Level Pending Potassium Level Pending Chloride Level Pending Carbon Dioxide Level Pending Anion Gap Pending Blood Urea Nitrogen Pending Creatinine Pending Glucose Level Pending Calcium Level Pending Total Bilirubin Pending Direct Bilirubin Pending Indirect Bilirubin Pending Aspartate Amino Transf (AST/SGOT) Pending Alanine Aminotransferase (ALT/SGPT) Pending Alkaline Phosphatase Pending B-Type Natriuretic Peptide 1830PG/ML Total Protein Pending Albumin Pending Globulin Pending Albumin/Globulin Ratio Pending Current Medications Medications (Trade) Dose Ordered Sig/[place] Route PRN Reason Start Time Stop Time Status Last Admin Dose Admin Acetaminophen/ Hydrocodone Bitart ([place] ()) 1 tab ONCE ONCE PO 04/15/17 12:30 04/15/17 12:31 DC 04/15/17 12:41 Procedures/MDM 81-year-old male who presents emergency department for spider bite to his right medial ankle that happened 4 days ago. His right foot/ankle pain with swelling got worse in the past 24 hours. He is unable to bear weight on this affected site. Complaints of dizziness that is on and off about 3 days. Denies difficulty breathing when lying flat, direct trauma, injury, falls. Differential diagnosis includes but not limited to deep vein thrombosis versus cellulitis versus sepsis congestive of heart failure versus acute gout cellulitis secondary to spider bite versus osteomyelitis Disease process was explained to the patient. She verbalized understanding and agreed with the diagnostic test, plan of care. I also discussed with him the importance of doing the ultrasound and specific blood works to rule out emergent diseases. Venous Doppler ultrasound right lower extremity: Blood works: EKG: Treatment: IRAJ Avila Apr 15, 2017 12:16
[2017-04-15] MEDS ORDERED: HYDROCODONE/APAP (10/325) TAB PO ONE (12:30)
[2017-04-15 12:49] LABS: ABNORMAL IP MESSAGE 1; BASOPHILS % 0.3 % (0.0-2.0); EOSINOPHILS % 0.3 % (0.0-7.0); HEMATOCRIT 40.9 % (42.0-52.0); HEMOGLOBIN 13.7 g/dl (14.0-18.0); LYMPHOCYTES # 1.8 10^3/ul (0.8-2.9); LYMPHOCYTES % 18.4 % (15.0-51.0); MEAN CORPUSCULAR HEMOGLOBIN 23.8 pg (29.0-33.0); MEAN CORPUSCULAR HGB CONC 33.5 g/dl (32.0-37.0); MEAN PLATELET VOLUME 9.9 fl (7.4-10.4); MONOCYTE # 1.2 10^3/ul (0.3-0.9); MONOCYTES % 11.8 % (0.0-11.0); NEUTROPHIL # 6.8 10^3/ul (1.6-7.5); NEUTROPHILS % 68.8 % (39.0-77.0); PLATELET COUNT 242 10^3/UL (140-415); POSITIVE DIFF @See below; RED BLOOD COUNT 5.76 10^6/ul (4.70-6.10); RED CELL DISTRIBUTION WIDTH 18.5 % (11.5-14.5); WHITE BLOOD COUNT 9.9 10^3/ul (4.8-10.8)
[2017-04-15 13:10] LABS: INR 1.38; PT RATIO 1.3
--- NOTE | 2017-04-15 13:48 | ERD ---
ER Documentation Chief Complaint Chief Complaint "Bit by white spider" x 4 days HPI The patient is a 81-year-old male, presenting to the ER because of insect bite to the right ankle 4 days ago. He complains of minimal irritation at the insect bite, He was initially seen by the PA who ordered extensively workup. He denies syncope, near syncope, neck pain, chest pain, dyspnea, dizziness, abdominal pain, vomiting or dysuria, diarrhea. Past medical history: Atrial fibrillation, hypertension, hypothyroidism, dyslipidemia Past surgical history: Pacemaker ROS All systems reviewed and are negative except as per history of present illness. Medications Home Meds Active Scripts Triamcinolone Acetonide* (Kenalog*) 0.1%-15GM Cr, 1 APPLIC TOP TID for 7 Days, # 1 TUB Prov:RAFAEL QUINONEZ MD 04/15/17 Reported Medications Chlorhexidine Gluconate (Peridex) 473 Ml Mouthwash, 473 ML MM PRN, BOTTLE 12/11/16 Polyethylene Glycol* (Polyethylene Glycol*) 17 Gm Powd.pack, 17 GM PO BID, #60 PACKET 12/11/16 Warfarin Sodium* (Coumadin*) 1 Mg Tablet, 1 MG PO DAILY SUN,,TH, TAB 12/11/16 Warfarin Sodium* (Coumadin*) 1 Mg Tablet, 1.5 MG PO MON,WED,MON,SAT, TAB 12/11/16 Ergocalciferol (Vitamin D2) (VITAMIN D2) 50,000 Unit Capsule, 50595 UNIT PO EVERY MONDAY, CAP 12/11/16 Solifenacin* (Vesicare*) 5 Mg Tablet, 5 MG PO DAILY, TAB 12/11/16 Prednisone* (Prednisone*) 20 Mg Tab, 20 MG PO DAILY, TAB 12/11/16 Omeprazole* (Omeprazole*) 40 Mg Capsule.dr, 40 MG PO DAILY, #30 CAP 12/11/16 Nitroglycerin* (Nitrostat*) 0.4 Mg Tab.subl, 0.4 MG SL Q5MIN Y for CHEST PAIN, BOTTLE 12/11/16 Losartan Potassium* (Losartan Potassium*) 50 Mg Tablet, 50 MG PO BID, TAB 12/11/16 Levothyroxine Sodium* (Levoxyl*) 25 Mcg Tablet, 25 MCG PO BEFORE BREAKFAST, #30 TAB 12/11/16 Hydralazine Hcl* (Hydralazine Hcl*) 25 Mg Tab, 25 MG PO TID, #90 TAB 12/11/16 Furosemide* (Furosemide*) 40 Mg Tablet, 40 MG PO BID, TAB 12/11/16 Fluticasone Propionate* (Fluticasone Propionate* Nasal) 50 Mcg/Waddy - 16 Gm Waddy.susp, 1 SPRAY NASAL DAILY, #1 BOTTLE TO EACH NOSTRIL 12/11/16 Chlorhexidine Gluconate* (Chlorhexidine Gluconate*) 118 Ml Liquid, 118 ML TOP, ML 12/11/16 Famotidine* (Famotidine*) 20 Mg Tablet, 20 MG PO BID, #60 TAB 12/11/16 Colchicine* (Colcrys*) 0.6 Mg Tablet, 0.6 MG PO DAILY, TAB 12/11/16 Carvedilol* (Carvedilol*) 25 Mg Tablet, 25 MG PO BID, #60 TAB 12/11/16 Aspirin (Low Dose Aspirin) 81 Mg Tablet.dr, 81 MG PO DAILY, #30 TAB 12/11/16 Amlodipine Besylate* (Norvasc*) 5 Mg Tablet, 5 MG PO DAILY, TAB 12/11/16 Fenofibrate, Micronized (Fenofibrate) 134 Mg Capsule, 134 MG PO DAILY 01/22/12 Atorvastatin (Lipitor) 80 Mg Tablet, 80 MG PO HS 01/22/12 Allergies Allergies: Coded Allergies: Penicillins (Verified Allergy, Mild, RASHES, 04/15/17) PMhx/Soc History of Surgery: Yes Anesthesia Reaction: No Hx Neurological Disorder: No Hx Respiratory Disorders: No Hx Cardiac Disorders: Yes (chronic AFIB, sick sinus rhythm) Hx Psychiatric Problems: No Hx Miscellaneous Medical Probl: No Hx Alcohol Use: No Hx Substance Use: No Hx Tobacco Use: No Smoking Status: Never smoker Physical Exam Vitals Vital Signs Date Time Temp Pulse Resp B/P Pulse Ox O2 Delivery O2 Flow Rate FiO2 04/15/17 11:13 99.0 65 18 189/80 98 Physical Exam Const: No acute distress. Head: Atraumatic. Eyes: Normal Conjunctiva. ENT: Normal External Ears, Nose and Mouth. Neck: Full range of motion. No meningismus. Resp: Clear to auscultation bilaterally. Cardio: Irregularly irregular Abd: Soft, non distended, normal bowel sounds, non tender. Skin: No petechiae or rashes. Back: No midline or flank tenderness. Ext: No cyanosis, or edema.Minimal excoriation at the right medial malleolus, no vesicle, no petechia Neur: Awake and alert. No focal deficit Psych: Normal Mood and Affect. Result Diagram: 04/15/17 1216 04/15/17 1259 Results 24 hrs Laboratory Tests Test 04/15/17 12:16 04/15/17 12:59 04/15/17 13:00 White Blood Count 9.910^3/ul Red Blood Count 5.7610^6/ul Hemoglobin 13.7g/dl Hematocrit 40.9% Mean Corpuscular Volume 71.0fl Mean Corpuscular Hemoglobin 23.8pg Mean Corpuscular Hemoglobin Concent 33.5g/dl Red Cell Distribution Width 18.5% Platelet Count 92508^3/UL Mean Platelet Volume 9.9fl Neutrophils % 68.8% Lymphocytes % 18.4% Monocytes % 11.8% Eosinophils % 0.3% Basophils % 0.3% Nucleated Red Blood Cells % 0.0/100WBC Neutrophils # 6.810^3/ul Lymphocytes # 1.810^3/ul Monocytes # 1.210^3/ul Eosinophils # 0.010^3/ul Basophils # 0.010^3/ul Nucleated Red Blood Cells # 0.010^3/ul Prothrombin Time 17.0Sec Prothrombin Time Ratio 1.3 INR International Normalized Ratio 1.38 Activated Partial Thromboplast Time 39.0Sec Sodium Level 138mmol/L Potassium Level 3.9mmol/L Chloride Level 100mmol/L Carbon Dioxide Level 24mmol/L Anion Gap 18 Blood Urea Nitrogen 21mg/dl Creatinine 1.29mg/dl Glucose Level 108mg/dl Calcium Level 9.5mg/dl Total Bilirubin 0.5mg/dl Direct Bilirubin 0.00mg/dl Indirect Bilirubin 0.5mg/dl Aspartate Amino Transf (AST/SGOT) 40IU/L Alanine Aminotransferase (ALT/SGPT) 42IU/L Alkaline Phosphatase 66IU/L Troponin I 0.019ng/ml C-Reactive Protein 5.6mg/dl B-Type Natriuretic Peptide 1830PG/ML Total Protein 8.2g/dl Albumin 4.3g/dl Globulin 3.90g/dl Albumin/Globulin Ratio 1.10 Erythrocyte Sedimentation Rate 19.0mm/Hr Current Medications Medications (Trade) Dose Ordered Sig/[place] Route PRN Reason Start Time Stop Time Status Last Admin Dose Admin Acetaminophen/ Hydrocodone Bitart ([place] ()) 1 tab ONCE ONCE PO 04/15/17 12:30 04/15/17 12:31 DC 04/15/17 12:41 Procedures/MDM [place] [id number] Radiology Main Line: [phone] DIAGNOSTIC IMAGING REPORT Patient: OMAR BAUTISTA : 1935 Age: 81 Sex: M MR #: [id number] DOS: 04/15/17 0000 Ordering MD: IRAJ ENGEL CARD READER Location: E/R Room/Bed: PROCEDURE: US Lower extremity Venous. CLINICAL INDICATION: Right leg edema TECHNIQUE: Multiple sonographic images of the right lower extremity deep venous system was obtained utilizing grayscale, color-flow, compressive sonography and doppler imaging with augmentation. The images were reviewed on a PACS workstation. COMPARISON: None. FINDINGS: There is normal compressibility and flow within the right common femoral, femoral, calf and popliteal veins. RPTAT: AA IMPRESSION: No sonographic evidence for deep venous thrombosis. Physician Waldo Date Time Electronically viewed and signed by Physician Waldo on 04/15/2017 13 :55 ME/ CC: IRAJ ENGEL [place] [id number] Radiology Main Line: [phone] DIAGNOSTIC IMAGING REPORT Patient: OMAR BAUTISTA : 1935 Age: 81 Sex: M MR #: [id number] DOS: 04/15/17 1207 Ordering MD: IRAJ ENGEL CARD READER Location: E/R Room/Bed: PROCEDURE: XR Foot. CLINICAL INDICATION: pain TECHNIQUE: AP, lateral and oblique views of the right foot was obtained. The images were reviewed on a PACS workstation. COMPARISON: None. FINDINGS: The bones of the foot appear intact, with no evidence of acute fracture, dislocation, or subluxation. Os peroneum noted. Calcaneal spur. Moderate degeneration of the first metatarsal phalangeal joint manifest as joint space narrowing, marginal bony productive change and periarticular erosion at the medial aspect. Calcification and significant soft tissue thickening about the medial aspect of the joint and the first toe. Bone mineralization is normal. Vascular calcifications present. RPTAT: AA IMPRESSION: Degeneration, periarticular erosions and soft tissue swelling about the first digit most compatible with gout. Physician Waldo Date Time Electronically viewed and signed by Physician Waldo on 04/15/2017 14 :50 ME/ CC: IRAJ ENGEL [place] [id number] Radiology Main Line: [phone] DIAGNOSTIC IMAGING REPORT Patient: OMAR BAUTISTA : 1935 Age: 81 Sex: M MR #: [id number] DOS: 04/15/17 1207 Ordering MD: IRAJ ENGEL NP Location: E/R Room/Bed: PROCEDURE: XR Right Ankle. CLINICAL INDICATION: pain/swelling TECHNIQUE: AP, oblique and lateral views of the right ankle were performed. COMPARISON: None. FINDINGS: There is normal mineralization and alignment. No acute fracture or osseous lesion is identified. The joints are normal. There is medial malleolar soft tissue swelling. IMPRESSION: Medial malleolar soft tissue swelling right ankle. .Ramirez Segura MD, Date Time Electronically viewed and signed by .Ramirez Segura MD, MD on 04/15/2017 14: 38 .A/ CC: IRAJ ENGEL EKG: Read by emergency physician Rate/Rhythm: Normal Sinus Rhythm 72 beats/min QRS, ST, T-waves: No ST elevation, no T inversion, LAD, LBBB, lat ST depression Impression: Abnormal EKG MEDICAL MAKING DECISION: The patient is a 81-year-old male, presenting with right ankle insect bite. No evidence of cellulitis or abscess or DVT The differential diagnoses considered include but are not limited to cellulitis , abscess, DVT Departure Diagnosis: Primary Impression: Insect bite Additional Impression: Anemia Condition: Good Comments He was discharged with Kenalog I discussed the findings with the patient. I advised the patient to follow-up with the primary physician in about 1-2 days, sooner if needed and return if any concern. Disclaimer: Inadvertent spelling and grammatical errors are likely due to EHR/ dictation software use and do not reflect on the overall quality of patient care. Also, please note that the electronic time recorded on this note does not necessarily reflect the actual time of the patient encounter. RAFAEL QUINONEZ MD Apr 15, 2017 13:48
--- NOTE | 2017-04-15 13:55 | RADRPT ---
PROCEDURE: US Lower extremity Venous. CLINICAL INDICATION: Right leg edema TECHNIQUE: Multiple sonographic images of the right lower extremity deep venous system was obtaine d utilizing grayscale, color-flow, compressive sonography and doppler imaging with augmentation. Th e images were reviewed on a PACS workstation. COMPARISON: None. FINDINGS: There is normal compressibility and flow within the right common femoral, femoral, calf and poplitea l veins. RPTAT: AA IMPRESSION: No sonographic evidence for deep venous thrombosis. Roselia Steward Physician Date Time Electronically viewed and signed by Roselia Steward Physician on 04/15/2017 13:55 [place]/
[2017-04-15 14:08] LABS: ALBUMIN 4.3 g/dl (3.3-4.9); ALBUMIN/GLOBULIN RATIO 1.1; BILIRUBIN,INDIRECT 0.5 mg/dl (0-1.1); BILIRUBIN,TOTAL 0.5 mg/dl (0.2-1.3); C-REACTIVE PROTEIN 5.6 mg/dl (0.0-0.9); CALCIUM 9.5 mg/dl (8.4-10.2); CREATININE 1.29 mg/dl (0.61-1.24); POTASSIUM 3.9 mmol/L (3.5-5.1); TOTAL PROTEIN 8.2 g/dl (6.1-8.1)
[2017-04-15 14:16] LABS: TROPONIN-I 0.019 ng/ml (0.00-0.12)
--- NOTE | 2017-04-15 14:38 | RADRPT ---
PROCEDURE: XR Right Ankle. CLINICAL INDICATION: pain/swelling TECHNIQUE: AP, oblique and lateral views of the right ankle were performed. COMPARISON: None. FINDINGS: There is normal mineralization and alignment. No acute fracture or osseous lesion is identified. The joints are normal. There is medial malleolar soft tissue swelling. IMPRESSION: Medial malleolar soft tissue swelling right ankle. .Ramirez Segura MD, MD Date Time Electronically viewed and signed by .Ramirez Segura MD, on 04/15/2017 14:38 .A/
--- NOTE | 2017-04-15 14:50 | RADRPT ---
PROCEDURE: XR Foot. CLINICAL INDICATION: pain TECHNIQUE: AP, lateral and oblique views of the right foot was obtained. The images were reviewed on a PACS workstation. COMPARISON: None. FINDINGS: The bones of the foot appear intact, with no evidence of acute fracture, dislocation, or subluxation . Os peroneum noted. Calcaneal spur. Moderate degeneration of the first metatarsal phalangeal joint manifest as joint space narrowing, ma rginal bony productive change and periarticular erosion at the medial aspect. Calcification and sign ificant soft tissue thickening about the medial aspect of the joint and the first toe. Bone mineralization is normal. Vascular calcifications present. RPTAT: AA IMPRESSION: Degeneration, periarticular erosions and soft tissue swelling about the first digit most compatible with gout. Physician Waldo Date Time Electronically viewed and signed by Roselia Steward Physician on 04/15/2017 14:50 [place]/
[2017-04-15] MEDS ORDERED: TRIA15CR55 TOP (14:58)
== END 2017-04-15 15:25 | disposition home or self-care (01) ==
LOC: FTE 11:11 → E/R 15:25
DX: S90.561A Insect bite (nonvenomous), right ankle, initial encounter (principal); D64.9 Anemia, unspecified; I10 Essential (primary) hypertension; E03.9 Hypothyroidism, unspecified; W57.XXXA Bitten or stung by nonvenomous insect and other nonvenomous arthropods, initial encounter; Y92.9 Unspecified place or not applicable; Z95.0 Presence of cardiac pacemaker; Z79.01 Long term (current) use of anticoagulants; Z79.82 Long term (current) use of aspirin
CPT/HCPCS: 73630; 80053; 83880; 84484; 85025; 85610; 85651; 85730; 86140; 87040; 93005; 93971

== ENCOUNTER → 2018-01-23 | Outpatient (CLI) | END | disposition home or self-care (01) ==

== ENCOUNTER → 2018-07-03 | Outpatient (CLI) | payer MEDICARE, OTHER ==
[~2018-07-03] MED LIST changes: -ASPI-664 PO; +ASPI81TA52 PO; +ERGO500013 PO; -ERGO500037 PO; +LOSA50TA14 PO; -LOSA50TA6 PO; -NIT4 SL; +NITR0.4T39 SL; +POLY17PO28 PO; -POLY17PO3 PO; +SOLI5TAB2 PO; -SOLI5TAB5 PO; +TRIA15CR55 TOP; +WARF1TAB PO; -WARF1TAB47 PO
== END | disposition home or self-care (01) ==
LOC: RAD 15:39
PROVIDERS: ATTEND Internal Medicine
DX: M54.9 Dorsalgia, unspecified (principal)
CPT/HCPCS: 72100